=== PATIENT | female | born 1995 | race Caucasian/White ===

== ENCOUNTER 2019-12-22 19:20 | Observation (INO) ==
--- OUTSIDE RECORDS SUMMARY | 2019-12-22 19:23 | External Medical Summary | Continuity of Care Document ---
:1995 Author Name Taj Painting, Provider Address Unavailable Unavailable , Care Team Providers Name Role Phone Mayela Pelaez [email or web address] Chencho Chopra Unavailable Unavailable Problems Active medical history not documented Allergies and Adverse Reactions No Known Drug Allergies (Allergy) Medications Levothyroxine Sodium 25 MCG Oral Tablet; TAKE 1 TABLET DAILY DIRECTED. Start: 24-Dec-2016 Refills: 0 Procedures Procedures not documented Immunizations Immunizations not documented Family History Mother No pertinent family history (V49.89) (Z78.9) Status: Active Father No pertinent family history (V49.89) (Z78.9) Status: Active Sister Family history of hypertension (V17.49) (Z82.49) Status: Act jair Social History - Smoking Status Never smoker Plan of Treatment Planned Observations Planned Goals not documented Results No Known Results Results not documented Encounters Appointment; Mayela Pelaez M.D. 06-Mar-2017 9:20 Encounter Diagnosis: Problem not documented
[2019-12-22] MEDS ORDERED: SODIUM CHLORIDE 0.9% 1000ML 2,000 ML IV ONE (19:33)
[2019-12-22] MEDS ORDERED: KETOROLAC TROMETHAMINE 15 MG/ML VIAL IV ONE (19:33)
[2019-12-22] MEDS ORDERED: ONDANSETRON INJ 2 MG/ML 2 ML VIAL IV STA (19:33)
[2019-12-22 19:52] LABS: Appearance Urine Clear (Clear); Bacteria Urine Automated 1+ (Negative); Bilirubin Urine Negative (Negative); Blood Urine 1+ (Negative); Color Urine Yellow; Epithelial Cell Urine Auto >30 /lpf (0-5); Glucose Urine UA Negative (Negative); Ketones Urine Negative (Negative); Leukocyte Esterase Urine 1+ (Negative); Nitrite Urine Negative (Negative); Protein Urine Negative (Negative); RBC Urine Automated 0-4 /hpf (0-4); Specific Gravity Urine 1.007 (1.000-1.030); Urobilinogen Urine Negative (Negative); pH Urine 6.5 (4.5-7.5)
[2019-12-22 20:07] LABS: Basophils # (auto) 0.04 K/uL (0-0.2); Basophils % (auto) 0.3 %; Eosinophils # (auto) 0.11 K/uL (0-0.5); Eosinophils % (auto) 0.8 %; Hemoglobin 14.3 g/dL (12.0-16.0); Immature Granulocytes # (auto) 0.04 K/uL (0.00-0.02); Immature Granulocytes % (auto) 0.3 %; Lymphocytes # (auto) 2.18 K/uL (1.2-3.4); Lymphocytes % (auto) 16.1 %; Mean Corpuscular Hemoglobin 31.2 pg (25-34); Mean Corpuscular Hgb Conc 34.9 g/dL (32-36); Mean Corpuscular Volume 89.3 fL (80-100); Mean Platelet Volume 9.9 fL (7.4-10.4); Monocytes # (auto) 0.82 K/uL (0.11-0.59); Monocytes % (auto) 6.1 %; Neutrophils # (auto) 10.36 K/uL (1.4-6.5); Neutrophils % (auto) 76.4 %; Platelet Count 309 K/uL (130-400); RDW Coefficient of Variation 12.8 % (11.5-14.5); RDW Standard Deviation 41.7 fL (36.4-46.3); Red Blood Count 4.59 M/uL (4.2-5.4); White Blood Count 13.55 K/uL (4.8-10.8)
[2019-12-22 20:22] LABS: Albumin Level 4.1 gm/dl (3.4-5.0); BUN Creatinine Ratio 12.7 (10-20); Calcium 9.2 mg/dl (8.5-10.1); Creatinine Clr Calc Pharmacy 91.6 ml/min; Est GFR (African American) 108.1; Est GFR (Non-African American) 93.2; Potassium 3.4 mmol/L (3.5-5.1)
[2019-12-22 20:25] LABS: Albumin Globulin Ratio 0.9 (0.9-2); Bilirubin,Total 0.3 mg/dl (0.2-1); Globulin 4.5 gm/dl (2.5-4.0); Total Protein 8.6 gm/dl (6.4-8.2)
[2019-12-22] MEDS ORDERED: IOVERSOL 100ml IV PRN (22:12)
--- NOTE | 2019-12-22 22:35 | CT Scan Report ---
CT abd pelvis oral and IV con CLINICAL HISTORY: 24 years-old Female presenting with rlq abd pain. TECHNIQUE: Multidetector CT of the abdomen and pelvis was performed after the administration of oral and intravenous contrast. IV contrast: 93 mL of Optiray 320. One or more dose lowering techniques wer e used consistent with the principles of ALARA (as low as reasonably achievable), including automatic exposure control, mA or kV adjustment to individual patient size, and/or use of iterative reconstruc tion. COMPARISON: None. CT DOSE (mGy.cm): The estimated cumulative dose is 316.34 mGy.cm. FINDINGS: [employer] topogram: Unremarkable. Lung bases: Normal heart size. No pericardial or pleural effusion. No focal infiltrate or nodule at t he lung bases. Liver: Normal morphology. No liver lesion. Patent hepatic vasculature. Biliary: No intrahepatic or extrahepatic biliary ductal dilatation. Normal gallbladder. Pancreas: Normal. Spleen: Normal. Adrenal glands: Normal. Kidneys and ureters: Normal. No hydronephrosis. Bladder: Incompletely evaluated secondary to underdistention. Pelvic organs: Uterus and ovaries normal. Bowel: Dilated nonopacified appendix with an appendicolith at the appendiceal base. The appendiceal d iameter measures 8 mm. Trace periappendiceal fat infiltration. No bowel obstruction. Peritoneal cavity: Small free fluid in the pelvis, possibly physiologic or reactive. No free intraper itoneal gas. Lymph nodes: Several prominent right lower quadrant mesenteric lymph nodes with trace surrounding fat infiltration. Vasculature: Aorta and IVC patent and normal in caliber. Abdominal wall: Normal. Musculoskeletal: Normal. IMPRESSION: 1. Acute uncomplicated appendicitis. Surgical consultation is necessary. ACT 112: Negative or not required by law. Electronically signed by: Sonny Jewell M.D. 12/22/2019 10:34 PM
[2019-12-22] MEDS ORDERED: cefOXitin 2,000 MG/60 ML BAG IV STA (22:38)
--- NOTE | 2019-12-22 23:52 | Emergency Department Note ---
Entered by Meme Sal acting as a scribe for Kristopher Estevez DO History of Present Illness General Chief complaint: Abdominal Pain Stated complaint: ABDOMINAL PAIN, DISTENDED Source: patient History of Present Illness Provider complaint: abdominal pain Onset (ago): hour(s) 3 Location: abdomen and right (lower) Pain Consistency: + other (persistent) Maximum Pain Intensity: 8 Relieved By: + none Associated symptoms: + nausea/vomiting and + other (-pain/burning during urination, -vaginal bleeding/diarrhea) The patient is a 24 year old female who presents to the Emergency Room with complaints of right lower abdominal for the past 3 hours. The patient notes that the pain started when she was sitting at work. She reports that she had an episode of nausea and vomiting yesterday. She denies any pain or burning during urination, vaginal bleeding or diarrhea. She reports that her last menstrual period was 2 weeks ago which was normal. She states that her last bowel movement was at 1300 today which was normal. Home Medications Home Medications Medication Instructions Recorded Confirmed Type citalopram 10 mg PO HS 12/22/19 12/22/19 History norethindrone-e.estradiol-iron 1 tab PO HS 12/22/19 12/22/19 History [ ()] Allergies Allergy/AdvReac Type Severity Reaction Status Date / Time No Known Allergies Allergy Verified 12/22/19 21:12 Past Med/Surg History Medical History No significant past medical history Social History Preferred Language: Lithuanian Feels Safe at Home: Yes Smoking Status: Never smoker Review of Systems See HPI for pertinent positives & negatives. and A total of 10 systems reviewed and were otherwise negative Physical Exam Vital Signs Vital Signs - 24 hr 12/22/19 19:23 12/22/19 21:05 12/22/19 21:06 Temperature 37.0 C Temperature Source Oral Pulse Rate 99 H 90 95 H Pulse Rate from SpO2 Sensor 90 97 H Respiratory Rate 16 18 24 Respiratory Effort / Characteristics Non-Labored Spontaneous Respiratory Depth Normal Respiratory Pattern Regular Blood Pressure 113/72 119/72 Blood Pressure Mean 85 85 Blood Pressure Position Sitting Pulse Oximetry 97 100 97 Oxygen Delivery Method Room Air Sepsis Recent Fever Within 48 Hours No Sepsis Action Taken by Nursing No Action Required 12/22/19 21:21 12/22/19 21:30 12/22/19 21:31 Temperature Temperature Source Pulse Rate 104 H 102 H Pulse Rate from SpO2 Sensor 106 H 96 H Respiratory Rate 13 17 Respiratory Effort / Characteristics Respiratory Depth Respiratory Pattern Blood Pressure 115/80 Blood Pressure Mean 86 Blood Pressure Position Pulse Oximetry 96 100 100 Oxygen Delivery Method Room Air Sepsis Recent Fever Within 48 Hours Sepsis Action Taken by Nursing 12/22/19 22:17 12/22/19 22:18 Temperature Temperature Source Pulse Rate 102 H 101 H Pulse Rate from SpO2 Sensor 100 H 101 H Respiratory Rate 22 18 Respiratory Effort / Characteristics Respiratory Depth Respiratory Pattern Blood Pressure 125/83 Blood Pressure Mean 99 Blood Pressure Position Pulse Oximetry 100 99 Oxygen Delivery Method Sepsis Recent Fever Within 48 Hours Sepsis Action Taken by Nursing GENERAL: alert, sitting up in bed, disheveled, moderate distress, holding right lower quadrant EYE EXAM: normal conjunctiva, PERRL and EOM's grossly intact OROPHARYNX: no exudate, no erythema, lips, buccal mucosa, and tongue normal and mucous membranes are moist NECK: supple, no nuchal rigidity, no adenopathy, non-tender LUNGS: Clear to auscultation. Normal chest wall mechanics HEART: no murmurs, S1 normal and S2 normal ABDOMEN: abdomen soft, tenderness to palpation of right lower quadrant, normo- active bowel sounds, no masses, no rebound or guarding. BACK: Back is symmetrical on inspection and there is no deformity, no midline tenderness, no CVA tenderness. SKIN: no rashes and no bruising UPPER EXTREMITIES: upper extremities are grossly normal. LOWER EXTREMITIES: No pitting edema. NEURO EXAM: Normal sensorium, cranial nerves II-XII grossly intact, normal speech, no gross weakness of arms, no gross weakness of legs. Course Course ED COURSE: Vital signs were reviewed and showed normotensive The patients medical record was reviewed The above diagnostic studies were performed and reviewed. ED treatments and interventions as stated above. 1928: The patient was evaluated in room C1B. A complete history and physical examination was performed. 2128: I reevaluated the patient and updated her on her results. 2240: I discussed the patient's case with Dr. Kam- [facility], he will accept the patient for further evaluation. 2254: Upon reevaluation, the patient is resting comfortably. I discussed my findings with the patient and she understands and agrees with the treatment plan. Based on the patients age, coexisting illnesses, exam and lab findings the decision to treat as an inpatient was made. The patient remained stable while under my care. The patient will be evaluated for further management. Administered Medications Ioversol (Optiray 320 100ml) 93 ml IV ONCE PRN PRN Reason: Interaction Checking Stop: 12/26/19 22:11 Last Admin: 12/22/19 22:12 Dose: 93 ml Documented by: [id number] Discontinued Medications Sodium Chloride (Nss 1000ml) 2,000 mls @ 999 mls/hr IV .Q2H1M ONE Stop: 12/22/19 21:33 Last Infusion: 12/22/19 22:09 Dose: 0 mls/hr Documented by: [id number] Admin: 12/22/19 20:09 Dose: 999 mls/hr Documented by: [id number] Cefoxitin Sodium (Mefoxin) 2,000 mg in 60 mls @ 100 mls/hr IV NOW STA Stop: 12/22/19 23:13 Last Infusion: 12/22/19 23:33 Dose: 0 mls/hr Documented by: [id number] Admin: 12/22/19 22:50 Dose: 100 mls/hr Documented by: [id number] Ketorolac Tromethamine (Toradol) 15 mg IV NOW ONE Stop: 12/22/19 19:34 Last Admin: 12/22/19 20:11 Dose: 15 mg Documented by: [id number] Ondansetron HCl (Zofran) 4 mg IV NOW STA Stop: 12/22/19 19:34 Last Admin: 12/22/19 20:11 Dose: 4 mg Documented by: [id number] Medical Decision Making Differential Diagnosis Differential diagnoses includes but is not limited to gastritis, peptic ulcer disease, GERD, gallbladder disease, pancreatitis, small bowel obstruction, acute coronary syndrome, pericarditis, ischemic bowel, irritable bowel disease, irritable bowel syndrome, appendicitis, diverticulitis, malignancy, hernia, urinary tract infection, torsion, /ectopic , perforation, trauma, infectious. Medical Records Attestation: I reviewed the patient's medical records. Home Medications Current Medication List: was personally reviewed by me Laboratory Data Attestation: I reviewed the patient's lab results. Result diagrams: 12/22/19 19:53 12/22/19 19:52 Lab Results 12/22/19 12/22/19 12/22/19 Range/Units 19:37 19:37 19:52 WBC (4.8-10.8) K/uL RBC (4.2-5.4) M/uL Hgb (12.0-16.0) g/dL Hct (37-47) % MCV (80-100) fL MCH (25-34) pg MCHC (32-36) g/dL RDW Std Deviation (36.4-46.3) fL RDW Coeff of Ella (11.5-14.5) % Plt Count (130-400) K/uL MPV (7.4-10.4) fL Immature Gran % (Auto) % Neut % (Auto) % Lymph % (Auto) % O'Brien % (Auto) % Eos % (Auto) % Baso % (Auto) % Immature Gran # (Auto) (0.00-0.02) K/uL Neut # (Auto) (1.4-6.5) K/uL Lymph # (Auto) (1.2-3.4) K/uL O'Brien # (Auto) (0.11-0.59) K/uL Eos # (Auto) (0-0.5) K/uL Baso # (Auto) (0-0.2) K/uL Sodium 138 (136-145) mmol/L Potassium 3.4 L (3.5-5.1) mmol/L Chloride 105 (98-107) mmol/L Carbon Dioxide 25 (21-32) mmol/L Anion Gap 8.0 (3-11) BUN 11 (7-18) mg/dl Creatinine 0.87 (0.6-1.2) mg/dl Est Cr Clr Drug Dosing 91.6 ml/min Est GFR ( Amer) 108.1 Est GFR (Non-Af Amer) 93.2 BUN/Creatinine Ratio 12.7 (10-20) Glucose 94 (70-99) mg/dl Calcium 9.2 (8.5-10.1) mg/dl Total Bilirubin 0.3 (0.2-1) mg/dl AST 13 L (15-37) U/L ALT 16 (12-78) U/L Alkaline Phosphatase 46 (45-117) U/L Total Protein 8.6 H (6.4-8.2) gm/dl Albumin 4.1 (3.4-5.0) gm/dl Globulin 4.5 H (2.5-4.0) gm/dl Albumin/Globulin Ratio 0.9 (0.9-2) Lipase 143 (73-393) U/L Urine Color Yellow Urine Appearance Clear (Clear) Urine pH 6.5 (4.5-7.5) Ur Specific [place] 1.007 (1.000-1.030) Urine Protein Negative (Negative) Urine Glucose (UA) Negative (Negative) Urine Ketones Negative (Negative) Urine Blood 1+ H (Negative) Urine Nitrite Negative (Negative) Urine Bilirubin Negative (Negative) Urine Urobilinogen Negative (Negative) Ur Leukocyte Esterase 1+ H (Negative) Urine WBC (Auto) 5-10 H (0-5) /hpf Urine RBC (Auto) 0-4 (0-4) /hpf U Hyaline Cast (Auto) 1-5 (0-5) /lpf U Epithel Cells (Auto) >30 H (0-5) /lpf Urine Bacteria (Auto) 1+ H (Negative) POC Ur Test NEG (NEG) 12/22/19 Range/Units 19:53 WBC 13.55 H (4.8-10.8) K/uL RBC 4.59 (4.2-5.4) M/uL Hgb 14.3 (12.0-16.0) g/dL Hct 41.0 (37-47) % MCV 89.3 (80-100) fL MCH 31.2 (25-34) pg MCHC 34.9 (32-36) g/dL RDW Std Deviation 41.7 (36.4-46.3) fL RDW Coeff of Ella 12.8 (11.5-14.5) % Plt Count 309 (130-400) K/uL MPV 9.9 (7.4-10.4) fL Immature Gran % (Auto) 0.3 % Neut % (Auto) 76.4 % Lymph % (Auto) 16.1 % O'Brien % (Auto) 6.1 % Eos % (Auto) 0.8 % Baso % (Auto) 0.3 % Immature Gran # (Auto) 0.04 H (0.00-0.02) K/uL Neut # (Auto) 10.36 H (1.4-6.5) K/uL Lymph # (Auto) 2.18 (1.2-3.4) K/uL O[place]Brien # (Auto) 0.82 H (0.11-0.59) K/uL Eos # (Auto) 0.11 (0-0.5) K/uL Baso # (Auto) 0.04 (0-0.2) K/uL Sodium (136-145) mmol/L Potassium (3.5-5.1) mmol/L Chloride (98-107) mmol/L Carbon Dioxide (21-32) mmol/L Anion Gap (3-11) BUN (7-18) mg/dl Creatinine (0.6-1.2) mg/dl Est Cr Clr Drug Dosing ml/min Est GFR ( Amer) Est GFR (Non-Af Amer) BUN/Creatinine Ratio (10-20) Glucose (70-99) mg/dl Calcium (8.5-10.1) mg/dl Total Bilirubin (0.2-1) mg/dl AST (15-37) U/L ALT (12-78) U/L Alkaline Phosphatase (45-117) U/L Total Protein (6.4-8.2) gm/dl Albumin (3.4-5.0) gm/dl Globulin (2.5-4.0) gm/dl Albumin/Globulin Ratio (0.9-2) Lipase (73-393) U/L Urine Color Urine Appearance (Clear) Urine pH (4.5-7.5) Ur Specific [place] (1.000-1.030) Urine Protein (Negative) Urine Glucose (UA) (Negative) Urine Ketones (Negative) Urine Blood (Negative) Urine Nitrite (Negative) Urine Bilirubin (Negative) Urine Urobilinogen (Negative) Ur Leukocyte Esterase (Negative) Urine WBC (Auto) (0-5) /hpf Urine RBC (Auto) (0-4) /hpf U Hyaline Cast (Auto) (0-5) /lpf U Epithel Cells (Auto) (0-5) /lpf Urine Bacteria (Auto) (Negative) POC Ur Test (NEG) Imaging Data Radiologist's Impression: Radiology results as stated below per my review and the radiologist's interpretation: CT abd pelvis oral and IV con CLINICAL HISTORY: 24 years-old Female presenting with rlq abd pain. TECHNIQUE: Multidetector CT of the abdomen and pelvis was performed after the administration of oral and intravenous contrast. IV contrast: 93 mL of Optiray 320. One or more dose lowering techniques were used consistent with the princi ples of ALARA (as low as reasonably achievable), including automatic exposure control, mA or kV adjustment to individual patient size, and/or use of iterative reconstruction. COMPARISON: None. CT DOSE (mGy.cm): The estimated cumulative dose is 316.34 mGy.cm. 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 Lung bases: Normal heart size. No pericardial or pleural effusion. No focal infiltrate or nodule at the lung bases. Liver: Normal morphology. No liver lesion. Patent hepatic vasculature. Biliary: No intrahepatic or extrahepatic biliary ductal dilatation. Normal gallbladder. Pancreas: Normal. Spleen: Normal. Adrenal glands: Normal. Kidneys and ureters: Normal. No hydronephrosis. Bladder: Incompletely evaluated secondary to underdistention. Pelvic organs: Uterus and ovaries normal. Bowel: Dilated nonopacified appendix with an appendicolith at the appendiceal base. The appendiceal diameter measures 8 mm. Trace periappendiceal fat infiltration. No bowel obstruction. Peritoneal cavity: Small free fluid in the pelvis, possibly physiologic or reactive. No free intraperitoneal gas. Lymph nodes: Several prominent right lower quadrant mesenteric lymph nodes with trace surrounding fat infiltration. Vasculature: Aorta and IVC patent and normal in caliber. Abdominal wall: Normal. Musculoskeletal: Normal. IMPRESSION: 1. Acute uncomplicated appendicitis. Surgical consultation is necessary. ACT 112: Negative or not required by law. Electronically signed by: Sonny Jewell M.D. 12/22/2019 10:34 PM Blood Pressure Blood Pressure Findings: Elevated blood pressure Blood Pressure Disposition: did not require urgent referral MDM Narrative Patient is a 24-year-old female who presents the ER for right lower quadrant abdominal pain which started earlier today. On exam she is acutely tender. No previous abdominal surgeries. Last menstrual period was 2 weeks ago. IV was established blood work was obtained. Labs show a leukocytosis of 13.5 thousand. No significant anemia. BMP with mild hypokalemia. LFTs bilirubin and lipase was unremarkable. UA with a small amount of hematuria. It was contaminated with multiple epithelial cells. was negative. CT abdomen pelvis confirms acute appendicitis. Patient was given IV fluids IV Zofran and IV Toradol. She was also given 2 g IV cefoxitin. Patient was updated bedside. Discussed with general surgery. Patient was admitted for acute appendicitis. Impression & Plan Acute appendicitis, Abdominal pain Discharge Plan Visit Data Chief Complaint: Abdominal Pain Stated Complaint: ABDOMINAL PAIN, DISTENDED ED Provider: Kristopher Estevez Discharge Problem: Acute appendicitis, Abdominal pain Patient Disposition: Being Evaluated by Hospitalist Forms Stand Alone Forms: My [facility] Prescriptions Prescriptions: No Action norethindrone-e.estradiol-iron [ (28)] 1.5 mg-30 mcg (21)/75 mg (7) tablet 1 tab PO HS RF: 0 citalopram 10 mg tablet 10 mg PO HS RF: 0 Referrals Referrals: Garcia Molina [Primary Care Provider] - Discharge Problem: Acute appendicitis Qualifiers: Acute appendicitis type: unspecified acute appendicitis type Qualified Code(s): K35.80 - Unspecified acute appendicitis Abdominal pain Qualifiers: Abdominal location: unspecified location Qualified Code(s): R10.9 - Unspecified abdominal pain The scribe's documentation has been prepared under my direction and personally reviewed by me in its entirety. I confirm that the note above accurately reflects all work, treatment, procedures, and medical decision making performed by me.
[2019-12-23] MEDS ORDERED: BUPIVACAINE 0.5 % 5 MG/1 ML MPF 30ML VIAL ONE (00:20)
[2019-12-23] MEDS ORDERED: CEFAZOLIN 250 MG/ML 1 GM VIAL ONE (00:20)
[2019-12-23] MEDS ORDERED: HEPARIN (PORCINE) 1000 UNIT/ML 10 ML (CATH LAB USE ONLY) ONE (00:20)
[2019-12-23] MEDS ORDERED: LIDOCAINE HCL 2% 2 ML VIAL/AMP(20MG/ML) INFIL ONE (00:21)
[2019-12-23] MEDS ORDERED: PROPOFOL IV EMULSION 10 MG/ML 20 ML VIAL IV ONE (00:21)
[2019-12-23] MEDS ORDERED: fentaNYL citrate 100 MCG/2 ML VIAL ONE (00:21)
[2019-12-23] MEDS ORDERED: SUCCINYLCHOLINE CHLORIDE 20 MG/ML 10 ML VIAL ONE (00:24)
--- NOTE | 2019-12-23 00:27 | Anesthesiology Consultation ---
Date of Service December 23, 2019 Assessment & Plan (1) Encounter for pre-operative examination: Chart Review Chart Review: Acceptable Risk for Surgery Consults Requested none ASA [id number] Proposed Anesthesia Anesthesia Type: General Risk / Benefits Reviewed With: PT / POA / Parent / Guardian, Accepts Plan and Informed Consent Obtained History Surgery Operation Date: 12/23/19 01:00 Proposed Procedures p Laparoscopic Appendectomy - Camilo Kam MD Height/Weight Height: 5 ft 3 in Weight: 66.9 kg Allergies Allergy/AdvReac Type Severity Reaction Status Date / Time No Known Allergies Allergy Verified 12/22/19 21:12 Medications Home Medications Medication Instructions Recorded Confirmed Last Taken citalopram 10 mg PO HS 12/22/19 12/22/19 Unknown norethindrone-e.estradiol-iron 1 tab PO HS 12/22/19 12/22/19 Unknown [ ()] Active Medications Generic Name Dose Route Start Last Admin Trade Name Freq PRN Reason Stop Dose Admin Ioversol 93 ml 12/22/19 22:12 12/22/19 22:12 Optiray 320 100ml IV 12/26/19 22:11 93 ml ONCE PRN Administration Interaction Checking NPO Date Last Intake of Fluids: 12/22/19 Time Last Intake of Fluids: 21:45 Last Intake of Fluids Comment: CT prep Date Last Intake of Solids: 12/22/19 Time Last Intake of Solids: 16:30 Past Medical History Medical History (Updated 12/23/19 @ 00:36 by Jose Butt DO) No significant past medical history Exercise / Class Metabolic Activity II 4-5 Yardwork/Stairs/Walk up hill Past Surgical History Surgical History (Updated 12/23/19 @ 00:26 by Jose Butt DO) S/P wisdom tooth extraction Past Anesthesia History No Hx of Anesthesia Complications and No Family Hx of Anesthesia Complications History of PONV No Hx of PONV and No Hx of Motion Sickness Social History Smoking Status: Never smoker Physical Exam Vital Signs Last Vital Signs Temp 98.6 F 12/22/19 19:23 Pulse 83 12/22/19 23:31 Resp 19 12/22/19 23:31 BP 109/65 12/22/19 23:31 Pulse Ox 99 12/22/19 23:31 ENMT Mouth: no dentition abnormality Thyromental Distance: > or= 3.5 Finger Breadths Mallampati Class: II Neck normal visual inspection Respiratory normal respiratory effort Auscultation: lungs clear to auscultation bilaterally Cardiovascular Rate/Rhythm: regular rate and regular rhythm Testing Laboratory Results 12/22/19 19:53 12/22/19 19:52 Urine Color Yellow 12/22/19 19:37 Urine Appearance Clear (Clear) 12/22/19 19:37 Urine pH 6.5 (4.5-7.5) 12/22/19 19:37 Ur Specific [place] 1.007 (1.000-1.030) 12/22/19 19:37 Urine Protein Negative (Negative) 12/22/19 19:37 Urine Glucose (UA) Negative (Negative) 12/22/19 19:37 Urine Ketones Negative (Negative) 12/22/19 19:37 Urine Nitrite Negative (Negative) 12/22/19 19:37 Ur Leukocyte Esterase 1+ (Negative) H 12/22/19 19:37 Urine WBC (Auto) 5-10 /hpf (0-5) H 12/22/19 19:37 Urine RBC (Auto) 0-4 /hpf (0-4) 12/22/19 19:37 U Hyaline Cast (Auto) 1-5 /lpf (0-5) 12/22/19 19:37 U Epithel Cells (Auto) >30 /lpf (0-5) H 12/22/19 19:37 Urine Bacteria (Auto) 1+ (Negative) H 12/22/19 19:37 12/22/19 19:37 POC Ur Test NEG
[2019-12-23] MEDS ORDERED: ONDANSETRON INJ 2 MG/ML 2 ML VIAL IV PRN ×2 (00:41→02:54)
[2019-12-23] MEDS ORDERED: ePHEDrine sulfate 50 MG/ML AMP IV PRN (00:41)
[2019-12-23] MEDS ORDERED: fentaNYL citrate 100 MCG/2 ML VIAL IV PRN (00:41)
[2019-12-23] MEDS ORDERED: ATROPINE SULFATE 0.1 MG/ML 10ML SYR IV PRN (00:41)
--- NOTE | 2019-12-23 00:45 | History & Physical Report ---
Date of Service December 23, 2019 Assessment & Plan (1) Acute appendicitis: This patient's history, physical findings, laboratories and CT findings are consistent with appendicitis. I have recommended a laparoscopic appendectomy. I explained the possible need to convert to an open procedure. I explained the possible complications associated with those procedures. The patient wishes to go ahead with surgery and has signed a consent form. History of Present Illness Chief Complaint: Right lower quadrant abdominal pain Primary Care Provider: Garcia Molina This is a 24-year-old female who presented to the emergency room with a complaint of pain that began in the right lower quadrant while she was working. It occurred about 10 hours ago. The pain was initially a dull ache-like sensation. She felt as if she could relieve it after having a bowel movement. She had a normal bowel movement but the pain persisted and then escalated to a more sharp component. It remained in the right lower quadrant and does not radiate. It is exacerbated by movement. She is never had pain like this before. There was no melena or hematochezia and she denies dysuria and hematuria. Allergies Allergy/AdvReac Type Severity Reaction Status Date / Time No Known Allergies Allergy Verified 12/22/19 21:12 Home Medications Home Medications Medication Instructions Recorded Confirmed Type citalopram 10 mg PO HS 12/22/19 12/22/19 History norethindrone-e.estradiol-iron 1 tab PO HS 12/22/19 12/22/19 History [ (28)] Past Med/Surg History Medical History (Updated 12/23/19 @ 00:36 by Jose Butt DO) No significant past medical history Surgical History (Updated 12/23/19 @ 00:26 by Jose Butt DO) S/P wisdom tooth extraction Social History Preferred Language: Liberian Feels Safe at Home: Yes Smoking Status: Never smoker Review of Systems Review of Systems: All systems reviewed & are unremarkable except as noted in HPI & below Physical Exam Constitutional: well developed and well nourished Neck: trachea midline Respiratory: normal respiratory effort, lungs clear to auscultation Cardiovascular: Rate/Rhythm: regular rate and regular rhythm Gastrointestinal (Abdomen): Inspection/Auscultation: abdomen normal to inspection and normal bowel sounds; abdomen not distended Percussion/Palpation: + abdomen tender (Right lower quadrant and midline lower abdomen); abdomen not rigid Skin: no rashes, warm and dry Lymphatic: no cervical lymphadenopathy Results & Data Vital Signs (Past 12 Hours) Vital Signs Temp Pulse Resp BP Pulse Ox 12/22/19 23:31 83 19 109/65 99 12/22/19 23:30 87 16 99 12/22/19 23:01 97 H 17 123/72 100 12/22/19 23:00 97 H 21 100 12/22/19 22:31 103 H 20 116/64 99 12/22/19 22:30 103 H 17 99 12/22/19 22:18 101 H 18 99 12/22/19 22:17 102 H 22 125/83 100 12/22/19 21:31 102 H 17 115/80 100 12/22/19 21:30 104 H 13 100 12/22/19 21:21 96 12/22/19 21:06 95 H 24 97 12/22/19 21:05 90 18 119/72 100 12/22/19 19:23 37.0 C 99 H 16 113/72 97 Laboratory Results 12/22/19 12/22/19 12/22/19 Range/Units 19:53 19:52 19:37 WBC 13.55 H (4.8-10.8) K/uL RBC 4.59 (4.2-5.4) M/uL Hgb 14.3 (12.0-16.0) g/dL Hct 41.0 (37-47) % MCV 89.3 (80-100) fL MCH 31.2 (25-34) pg MCHC 34.9 (32-36) g/dL RDW Std Deviation 41.7 (36.4-46.3) fL RDW Coeff of Ella 12.8 (11.5-14.5) % Plt Count 309 (130-400) K/uL MPV 9.9 (7.4-10.4) fL Immature Gran % (Auto) 0.3 % Neut % (Auto) 76.4 % Lymph % (Auto) 16.1 % Montgomery % (Auto) 6.1 % Eos % (Auto) 0.8 % Baso % (Auto) 0.3 % Immature Gran # (Auto) 0.04 H (0.00-0.02) K/uL Neut # (Auto) 10.36 H (1.4-6.5) K/uL Lymph # (Auto) 2.18 (1.2-3.4) K/uL Montgomery # (Auto) 0.82 H (0.11-0.59) K/uL Eos # (Auto) 0.11 (0-0.5) K/uL Baso # (Auto) 0.04 (0-0.2) K/uL Sodium 138 (136-145) mmol/L Potassium 3.4 L (3.5-5.1) mmol/L Chloride 105 (98-107) mmol/L Carbon Dioxide 25 (21-32) mmol/L Anion Gap 8.0 (3-11) BUN 11 (7-18) mg/dl Creatinine 0.87 (0.6-1.2) mg/dl Est Cr Clr Drug Dosing 91.6 ml/min Est GFR ( Amer) 108.1 Est GFR (Non-Af Amer) 93.2 BUN/Creatinine Ratio 12.7 (10-20) Glucose 94 (70-99) mg/dl Calcium 9.2 (8.5-10.1) mg/dl Total Bilirubin 0.3 (0.2-1) mg/dl AST 13 L (15-37) U/L ALT 16 (12-78) U/L Alkaline Phosphatase 46 (45-117) U/L Total Protein 8.6 H (6.4-8.2) gm/dl Albumin 4.1 (3.4-5.0) gm/dl Globulin 4.5 H (2.5-4.0) gm/dl Albumin/Globulin Ratio 0.9 (0.9-2) Lipase 143 (73-393) U/L Urine Color Urine Appearance (Clear) Urine pH (4.5-7.5) Ur Specific [place] (1.000-1.030) Urine Protein (Negative) Urine Glucose (UA) (Negative) Urine Ketones (Negative) Urine Blood (Negative) Urine Nitrite (Negative) Urine Bilirubin (Negative) Urine Urobilinogen (Negative) Ur Leukocyte Esterase (Negative) Urine WBC (Auto) (0-5) /hpf Urine RBC (Auto) (0-4) /hpf U Hyaline Cast (Auto) (0-5) /lpf U Epithel Cells (Auto) (0-5) /lpf Urine Bacteria (Auto) (Negative) POC Ur Test NEG (NEG) 12/22/19 Range/Units 19:37 WBC (4.8-10.8) K/uL RBC (4.2-5.4) M/uL Hgb (12.0-16.0) g/dL Hct (37-47) % MCV (80-100) fL MCH (25-34) pg MCHC (32-36) g/dL RDW Std Deviation (36.4-46.3) fL RDW Coeff of Ella (11.5-14.5) % Plt Count (130-400) K/uL MPV (7.4-10.4) fL Immature Gran % (Auto) % Neut % (Auto) % Lymph % (Auto) % Montgomery % (Auto) % Eos % (Auto) % Baso % (Auto) % Immature Gran # (Auto) (0.00-0.02) K/uL Neut # (Auto) (1.4-6.5) K/uL Lymph # (Auto) (1.2-3.4) K/uL Montgomery # (Auto) (0.11-0.59) K/uL Eos # (Auto) (0-0.5) K/uL Baso # (Auto) (0-0.2) K/uL Sodium (136-145) mmol/L Potassium (3.5-5.1) mmol/L Chloride (98-107) mmol/L Carbon Dioxide (21-32) mmol/L Anion Gap (3-11) BUN (7-18) mg/dl Creatinine (0.6-1.2) mg/dl Est Cr Clr Drug Dosing ml/min Est GFR ( Amer) Est GFR (Non-Af Amer) BUN/Creatinine Ratio (10-20) Glucose (70-99) mg/dl Calcium (8.5-10.1) mg/dl Total Bilirubin (0.2-1) mg/dl AST (15-37) U/L ALT (12-78) U/L Alkaline Phosphatase (45-117) U/L Total Protein (6.4-8.2) gm/dl Albumin (3.4-5.0) gm/dl Globulin (2.5-4.0) gm/dl Albumin/Globulin Ratio (0.9-2) Lipase (73-393) U/L Urine Color Yellow Urine Appearance Clear (Clear) Urine pH 6.5 (4.5-7.5) Ur Specific [place] 1.007 (1.000-1.030) Urine Protein Negative (Negative) Urine Glucose (UA) Negative (Negative) Urine Ketones Negative (Negative) Urine Blood 1+ H (Negative) Urine Nitrite Negative (Negative) Urine Bilirubin Negative (Negative) Urine Urobilinogen Negative (Negative) Ur Leukocyte Esterase 1+ H (Negative) Urine WBC (Auto) 5-10 H (0-5) /hpf Urine RBC (Auto) 0-4 (0-4) /hpf U Hyaline Cast (Auto) 1-5 (0-5) /lpf U Epithel Cells (Auto) >30 H (0-5) /lpf Urine Bacteria (Auto) 1+ H (Negative) POC Ur Test (NEG) Diagnostic Findings CT abd pelvis oral and IV con (I reviewed the images as well as the report) CLINICAL HISTORY: 24 years-old Female presenting with rlq abd pain. TECHNIQUE: Multidetector CT of the abdomen and pelvis was performed after the administration of oral and intravenous contrast. IV contrast: 93 mL of Optiray 320. One or more dose lowering techniques were used consistent with the principles of ALARA (as low as reasonably achievable), including automatic exposure control, mA or kV adjustment to individual patient size, and/or use of iterative reconstruction. COMPARISON: None. CT DOSE (mGy.cm): The estimated cumulative dose is 316.34 mGy.cm. FINDINGS: Supervisor Lathing topogram: Unremarkable. Lung bases: Normal heart size. No pericardial or pleural effusion. No focal infiltrate or nodule at the lung bases. Liver: Normal morphology. No liver lesion. Patent hepatic vasculature. Biliary: No intrahepatic or extrahepatic biliary ductal dilatation. Normal gallbladder. Pancreas: Normal. Spleen: Normal. Adrenal glands: Normal. Kidneys and ureters: Normal. No hydronephrosis. Bladder: Incompletely evaluated secondary to underdistention. Pelvic organs: Uterus and ovaries normal. Bowel: Dilated nonopacified appendix with an appendicolith at the appendiceal base. The appendiceal diameter measures 8 mm. Trace periappendiceal fat infiltration. No bowel obstruction. Peritoneal cavity: Small free fluid in the pelvis, possibly physiologic or reactive. No free intraperitoneal gas. Lymph nodes: Several prominent right lower quadrant mesenteric lymph nodes with trace surrounding fat infiltration. Vasculature: Aorta and IVC patent and normal in caliber. Abdominal wall: Normal. Musculoskeletal: Normal. IMPRESSION: 1. Acute uncomplicated appendicitis. Surgical consultation is necessary. (1) Acute appendicitis Acute appendicitis type: unspecified acute appendicitis type Qualified Code(s): K35.80 - Unspecified acute appendicitis
[2019-12-23] MEDS ORDERED: ROCURONIUM BROMIDE 10 MG/ML 5 ML VIAL ONE (01:36)
--- NOTE | 2019-12-23 01:52 | Post Operative Brief Note ---
Immediate Post Op Note v1 Date of Surgery December 23, 2019 Pre & Post Diagnosis Operation Date: 12/23/19 01:00 Pre-Op Diagnosis: Acute appendicitis Post-Op Diagnosis: Acute appendicitis I identified the patient and participated in the time-out.: Yes Procedure Operation Date: 12/23/19 01:00 Actual Procedures p Laparoscopic Appendectomy - Camilo Kam MD Surgeon Camilo Kam MD Court Security Officer None Estimated Blood Loss 5 Findings Consistent with Post-Op Diagnosis Specimens Appendix Drains Weaver Catheter (Inserted at 0100, clear yellow urine; discontinued at end of case by BRYCE Mitchell) Anesthesia Type General Complications none
--- NOTE | 2019-12-23 02:54 | Anesthesiology Progress Note ---
Date of Service December 23, 2019 Anesthesia Post Procedure Vital Signs Vital Signs: Temp Pulse Pulse Resp BP BP Pulse Ox 12/23/19 02:20 99.1 F 102 H 16 97/49 L 96 12/23/19 02:15 111 H 18 104/52 L 98 12/23/19 02:05 122 H 16 97/48 L 94 12/23/19 01:55 99.3 F 130 H 18 101/56 L 96 12/22/19 23:31 83 19 109/65 99 12/22/19 23:30 87 16 99 12/22/19 23:01 97 H 17 123/72 100 12/22/19 23:00 97 H 21 100 12/22/19 22:31 103 H 20 116/64 99 12/22/19 22:30 103 H 17 99 12/22/19 22:18 101 H 18 99 12/22/19 22:17 102 H 22 125/83 100 12/22/19 21:31 102 H 17 115/80 100 12/22/19 21:30 104 H 13 100 12/22/19 21:21 96 12/22/19 21:06 95 H 24 97 12/22/19 21:05 90 18 119/72 100 12/22/19 19:23 98.6 F 99 H 16 113/72 97 Transfer of Care Handoff Completed per policy Notes Mental Status: alert / awake / arousable and participated in evaluation Patient Amnestic to Procedure: Yes Nausea / Vomiting: adequately controlled Pain: adequately controlled Airway Patency, RR, SpO2: stable & adequate BP & HR: stable & adequate Hydration State: stable & adequate Anesthetic Complications: no major complications apparent and Pt Satisfied with anesthetic care
[2019-12-23] MEDS: MoRPHine SULFATE 4 MG/ML 1 ML CARP\\VIAL IV PRN ×2 (03:16→13:02)
--- NOTE | 2019-12-23 08:10 | Operative Report ---
DATE OF OPERATION: 12/23/2019 PREOPERATIVE DIAGNOSIS: Appendicitis. POSTOPERATIVE DIAGNOSIS: Appendicitis. PROCEDURE: Laparoscopic appendectomy. SURGEON: Camilo Kam MD FINDINGS: The appendix in its distal four-fifths was hyperemic, dilated and firm. The base of the appendix and the cecum at the base of the appendix were normal. The visible bowel appeared normal. There was no evidence of perforation or abscess. TECHNIQUE: The patient was given a general anesthetic and the area was prepped and draped in the usual sterile fashion. Transverse incision was made below the umbilicus, carried down through the subcutaneous tissue to the fascia which was grasped with 2 Boaz clamps and incised between. The peritoneum was identified, incised, and the introducers were placed bluntly. The abdomen was then insufflated to a pressure of 15 mmHg with carbon dioxide. The lower midline introducer was placed under direct vision. The skin for all the incisions was anesthetized prior to making the incisions. It was anesthetized with 0.5% Marcaine. Traction was placed superiorly on the cecum and the appendix was identified. The left lower quadrant introducer was then placed under direct vision through small skin incision. Traction was able to be placed anteriorly on the appendix. There were some minor adhesions to the lateral abdominal wall, which was taken down bluntly. I was able to identify the base of the appendix and its connection with the cecum. I was able to dissect the mesoappendix away from the base of the appendix just above the cecum and then amputated the appendix using the Endo-NORMA stapler. That allowed me to elevate the mesoappendix and take some additional adhesions down laterally and medially. That was then divided with 2 firings of the Endo-NORMA stapler. The appendix was placed into an Endobag and brought out through the left lower quadrant introducer site. That introducer was replaced. The right lower quadrant was irrigated and the irrigation removed. The staple lines were inspected and there was no bleeding. Any irrigation that entered the right upper quadrant was removed and any irrigation that entered the pelvis was removed. The gas was allowed to escape and the introducers were removed. The fascia of the umbilical and left lower quadrant introducer sites was closed with interrupted 0 Vicryl and skin of all the incisions was closed with 4-0 Monocryl in either an interrupted or running subcuticular fashion. The skin was cleansed, dried, benzoin placed, Steri-Strips applied. Estimated blood loss was 5 mL. Sponge, needle and instrument counts were correct prior to closure. The patient tolerated the surgical procedure without complication and was transferred to recovery. I attest to the content of the Intraoperative Record and any orders documented therein. Any exception s are noted below.
[2019-12-23] MEDS: OXYCODONE/ACETAMINOPHEN 5mg/325mg TAB PO PRN ×3 (08:46→20:40)
[2019-12-23] MEDS: JUNEL~ORDER AWAITING ACTION SCH ×3 (13:20→23:44)
--- NOTE | 2019-12-23 16:45 | Surgery Progress Note ---
Date of Service December 23, 2019 Assessment & Plan (1) Acute appendicitis: Postoperative day 0 status post laparoscopic appendectomy Hemodynamically stable Encouraged ambulation Question if nausea is due to analgesics Continue to encourage diet slowly Subjective Postoperative day 0 status post laparoscopic appendectomy Tolerating regular diet Having some nausea when she sits upright to eat but no vomiting Ambulated well Physical Exam Gastrointestinal (Abdomen): Inspection/Auscultation: normal bowel sounds and + abdominal surgical incision; abdomen not distended Percussion/Palpation: + abdomen tender (Incisional mostly) and abdomen soft Results & Data Vital Signs (Past 12 Hours) Vital Signs Temp Pulse Resp BP Pulse Ox 12/23/19 14:59 37.0 C 87 18 105/69 97 12/23/19 12:09 36.5 C 81 16 99/63 L 94 12/23/19 07:36 37.0 C 62 16 96/60 L 96 12/23/19 05:45 36.9 C 97 H 16 93/59 L 94 12/23/19 04:45 37.1 C 109 H 16 97/60 L 94 (1) Acute appendicitis Acute appendicitis type: unspecified acute appendicitis type Qualified Code(s): K35.80 - Unspecified acute appendicitis
[2019-12-23] MEDS ORDERED: CITALOPRAM 20 MG TAB PO SCH (21:00)
--- NOTE | 2019-12-24 09:57 | Surgery Progress Note ---
Date of Service December 24, 2019 Assessment & Plan (1) Acute appendicitis: Postop day 1 from appendectomy. Doing well. Okay for discharge. Instructions given. Subjective Patient seen. Feeling much better. Tolerating diet. No nausea and pain controlled. Physical Exam Physical Exam: Alert and oriented no acute distress Abdomen is soft. Expected incisional tenderness. Results & Data Vital Signs (Past 12 Hours) Vital Signs Temp Pulse Resp BP Pulse Ox 12/24/19 08:23 36.7 C 73 18 113/74 99 12/23/19 23:45 36.6 C 71 16 105/68 98 PG Care Time/CCT Total # of Minutes Spent Total Time Spent with Patient: Total time spent is greater than 50% in coordination of care (as documented) at patient's floor/unit and/or counseling patient: Coding Level of Care Code None Diagnoses Acute appendicitis K35.80 Acute appendicitis type: unspecified acute appendicitis type (1) Acute appendicitis Acute appendicitis type: unspecified acute appendicitis type Qualified Code(s): K35.80 - Unspecified acute appendicitis
[2019-12-24] MEDS: OXYCODONE/ACETAMINOPHEN 5mg/325mg TAB PO PRN (10:53)
--- NOTE | 2019-12-26 10:00 | Discharge Summary ---
Date of Service December 26, 2019 Admission HPI Per Admitting Provider This is a 24-year-old female who presented to the emergency room with a complaint of pain that began in the right lower quadrant while she was working. It occurred about 10 hours ago. The pain was initially a dull ache-like sensation. She felt as if she could relieve it after having a bowel movement. She had a normal bowel movement but the pain persisted and then escalated to a more sharp component. It remained in the right lower quadrant and does not radiate. It is exacerbated by movement. She is never had pain like this before. There was no melena or hematochezia and she denies dysuria and hematuria. Principal Diagnosis acute appendicitis Discharge Data Allergies Allergy/AdvReac Type Severity Reaction Status Date / Time No Known Allergies Allergy Verified 12/22/19 21:12 Consultations 12/22/19 22:38 ED Decision to Admit Stat Procedures Performed Operation Date: 12/23/19 01:00 Actual Procedures p Laparoscopic Appendectomy - Camilo Kam MD Ordered Studies 12/22/19 19:33 CT abd pelvis oral and IV con Stat Hospital Course (1) Acute appendicitis: Patient was taken to operating room for laparoscopic appendectomy possible open by Dr. Kam. Patient found to have acute appendicitis without perforation or abscess. Patient tolerated procedure well and was transferred to recovery then to medical/surgical floor for postoperative care. Diet was advanced to regular diet. Activity as tolerated. PO Percocet prn pain. POD # 0 vitals stable, nausea with sitting up to eat but no vomiting. Patient encouraged to ambulate and continue diet slowly. POD # 1 vitals stable, nausea resolved, pain controlled. Patient discharged home in stable condition on POD # 1. Total Time Total Time Spent Total Time Spent (In Minutes): 20 Total Time Includes: Examination of the Patient, Discharge Planning and Medication Reconciliation Discharge Plan Discharge Items Patient Disposition: Home - Self-Care Reason For Visit: ABD PAIN Discharge Diagnosis: Appendicitis Activity: As commented below Non-emergency contact: Surgeon Call non-emergency contact if: your temperature is above 101.5, your wound has increased redness and your wound has increased drainage Follow-up/Referrals: Camilo Kam MD [Physician] - 01/06/20 2:45 pm Garcia Molina [Primary Care Provider] - (We will call to schedule your appointment on [facility] and will call you with the date and time. ) Diet: Regular Addtl Attending Provider Instructions: Post-Surgical ~Discharge Instructions Activity Recommendations: - lifting limitation: (10 pounds for 2 weeks), - exercise/sex/sports limit: (nonstrenuous for 2 weeks), - driving or machine use limit: (none for 1 week), - Shower/bathe limit: (may shower beginning tomorrow) Diet: - Resume previous diet SPECIAL CARE INSTRUCTIONS: - May shower in 24 hours. Let water run over area and pat dry. - Leave steri strips on for one week. - Call the surgeon's office with any questions or concerns - - (ex. temperature higher than 101 degrees F, excessive bleeding or pain). MEDICATIONS: - Resume previous medications unless instructed otherwise by your surgeon. - Ibuprofen 600 mg every 6 hours with food - Percocet 1 every 4 hours, as needed for pain FOLLOW UP VISIT: - If not already scheduled, please call the office to schedule a two week follow-up appointment. Office number Pending Studies at Discharge: Yes Studies:: Pathology Stand-Alone Forms: [facility], Opioid Pain Management, Work/School Release (Inpt) Medications and DC Order Prescriptions: New oxycodone-acetaminophen [Percocet] 5-325 mg Tablet 1 tab PO Q4H PRN (Reason: pain) Qty: 5 RF: 0 Continued norethindrone-e.estradiol-iron [June FE 1.5/30 (28)] 1.5 mg-30 mcg (21)/75 mg (7) tablet 1 tab PO HS RF: 0 citalopram 10 mg tablet 10 mg PO HS RF: 0 Discharge Orders: Discharge Order (Routine); Ordered 12/24/19 Ordered By: Lanny Mann/Other Patient Handouts: What Is Appendicitis Admission Data Admit Date/Time: 12/23/19 01:52 Attending Provider: Camilo Kam Admit Provider: Camilo Kam Primary Care Provider: Garcia Molina Other Providers: Camilo Kam Other Interventions: Discharge Summary Assessment (RN) Last Done: 12/24/19 10:41 DC Date/Time DO NOT enter until pt leaves facility: 12/24/19 11:00
== END 2019-12-24 11:00 | disposition home or self-care (01) ==
LOC: ED 19:20 → OR 12-23 00:19 → 3W 12-23 00:19